=== PATIENT | male | born 1970 | race African-American/Black ===

== ENCOUNTER 2017-02-03 18:26 | Emergency (ER) | payer BC ==
[~2017-02-03] VITALS: Ht 167.6 cm; Wt 74.8 kg
[2017-02-03 19:00] VITALS: BP 167/80
[2017-02-03] MEDS ORDERED: CEFTRIAXONE IM 250 MG VIAL. IM ONE ×2 (19:11→19:30)
[2017-02-03] MEDS ORDERED: METRONIDAZOLE 500 MG TABLET. PO ONE (19:15)
[2017-02-03] MEDS ORDERED: AZITHROMYCIN 250 MG TABLET PO ONE (19:15)
[2017-02-03] MEDS ORDERED: CIPR500T94 PO (19:16)
--- NOTE | 2017-02-03 19:17 | PHYS DOC ---
Past Medical History Past Medical History: Hypertension Past Surgical History: No Surgical History Alcohol Use: Occasionally Drug Use: None Adult General Chief Complaint Chief Complaint: SEXUALLY TRANSMITTED DISEASE HPI HPI Patient is a 46 year old male presents emergency department stating that he his maid of him to let them know that she was positive for Trichomonas. Patient states that he has been having burning with urination although denies any penile drainage. Patient states that he has not had any fever, chills. He does state he has had multiple partners times 3. Review of Systems Review of Systems Constitutional: Denies fever or chills [] Eyes: Denies change in visual acuity, redness, or eye pain [] HENT: Denies nasal congestion or sore throat [] Respiratory: Denies cough or shortness of breath [] Cardiovascular: No additional information not addressed in HPI [] GI: Denies abdominal pain, nausea, vomiting, bloody stools or diarrhea [] : dysuria denies hematuria [] Musculoskeletal: Denies back pain or joint pain [] Integument: Denies rash or skin lesions [] Neurologic: Denies headache, focal weakness or sensory changes [] Current Medications Current Medications Current Medications Medications (Trade) Dose Ordered Sig/Ritu Start Time Stop Time Status Last Admin Dose Admin Azithromycin (Zithromax) 1,000 mg 1X ONCE 02/03/17 19:15 02/03/17 19:16 DC 02/03/17 19:13 1,000 MG Ceftriaxone Sodium (Rocephin Im) 250 mg 1X ONCE 02/03/17 19:30 02/03/17 19:31 DC 02/03/17 19:21 250 MG Metronidazole (Flagyl) 2,000 mg 1X ONCE 02/03/17 19:15 02/03/17 19:16 DC 02/03/17 19:13 2,000 MG Allergies Allergies Allergies Coded Allergies Type Severity Reaction Last Updated Verified No Known Drug Allergies 02/03/17 No Physical Exam Physical Exam Constitutional: Well developed, well nourished, no acute distress, non-toxic appearance. [] HENT: Normocephalic, atraumatic, bilateral external ears normal, oropharynx moist, no oral exudates, nose normal. [] Eyes: PERRLA, EOMI, conjunctiva normal, no discharge. [] Neck: Normal range of motion, no tenderness, supple, no stridor. [] Cardiovascular:Heart rate regular rhythm, no murmur [] Lungs & Thorax: Bilateral breath sounds clear to auscultation [] Abdomen: Bowel sounds hypoactive, soft, no tenderness, no masses, no pulsatile masses. [] Skin: Warm, dry, no erythema, no rash. [] Back: No tenderness Extremities: No tenderness, no cyanosis, no clubbing, ROM intact, no edema. [] Neurologic: Alert and oriented X 3, normal motor function, normal sensory function, no focal deficits noted. [] Psychologic: Affect normal, judgement normal, mood normal. [] Current Patient Data Vital Signs Vital Signs Date Time Temp Pulse Resp B/P Pulse Ox O2 Delivery O2 Flow Rate FiO2 02/03/17 19:00 97.9 89 20 96 Room Air 97.9 Lab Values Laboratory Tests Test 02/03/17 19:20 Urine Color [place] Urine Clarity Clear Urine pH 5.5 Urine Specific [place] >=1.030 Urine Protein Negativemg/dL (NEG-TRACE) Urine Glucose (UA) Negativemg/dL (NEG) Urine Ketones (Stick) Negativemg/dL (NEG) Urine Blood Negative (NEG) Urine Nitrite Negative (NEG) Urine Bilirubin Small (NEG) Urine Urobilinogen Dipstick 1.0mg/dL (0.2 mg/dL) Urine Leukocyte Esterase Small (NEG) Urine RBC Rare/HPF (0-2) Urine WBC 5-10/HPF (0-4) Urine Squamous Epithelial Cells Occ/LPF Urine Bacteria 0/HPF (0-FEW) Urine Mucus Mod/LPF EKG EKG [] Radiology/Procedures Radiology/Procedures [] Course & Med Decision Making Course & Med Decision Making Pertinent Labs and Imaging studies reviewed. (See chart for details) Patient will be provided with Rocephin injection, Zithromax and Flagyl. Patient was instructed to refrain from sexual intercourse for the next 2 weeks. He was instructed to notify his partners in regards to sexual transmitted infections. Patient was encouraged to drink plenty of fluids. Also spoke with patient in regards to using condoms. Patient will be discharged home in stable condition since symptoms to return back to emergency department as been provided. Urine was positive for urinary tract infection. Patient will be placed on Cipro. [] Dragon Disclaimer Dragon Disclaimer This electronic medical record was generated, in whole or in part, using a voice recognition dictation system. Departure Departure Impression: Primary Impression: STD (male) Additional Impression: UTI (urinary tract infection) Disposition: 01 HOME, SELF-CARE Condition: STABLE Referrals: MATY ANDREWS MD (PCP) Patient Instructions: Sexually Transmitted Disease, [id number], Urinary Tract Infection, [id number] Additional Instructions: Activity as tolerated. Medications as prescribed. Drink plenty of fluids such as water and citrus beverages. Avoid cranberry juice cocktail, carbonate beverages, citrus fruits and alcohol sees her considered irritants to the bladder. Refrain from sexual intercourse for the next 2 weeks. Notify your partners in regards to being treated for sexually transmitted infections. Primary care physician next 3-5 days. Return back to emergency prior signs symptoms of become worse. Scripts Ciprofloxacin Hcl (Cipro)500 Mg Tablet1 Tab PO BID #14 TAB Prov:JARETH HODGE NP 02/03/17 Problem Qualifiers JARETH HODGE NP Feb 03, 2017 19:17
[2017-02-03 19:28] LABS: BILIRUBIN,URINE SMALL (NEG); GLUCOSE,URINE NEGATIVE (NEG); NITRITE,URINE NEGATIVE (NEG); PH,URINE 5.5; PROTEIN,URINE NEGATIVE (NEG-TRACE)
[2017-02-03 19:35] LABS: BACTERIA,URINE 0 /HPF (0-FEW); RBC,URINE RARE /HPF (0-2); SQUAMOUS EPITHELIAL CELL,UR OCC /LPF
== END 2017-02-03 19:44 | disposition home or self-care (01) ==
LOC: ER 18:26
DX: A64 Unspecified sexually transmitted disease (principal); N39.0 Urinary tract infection, site not specified; I10 Essential (primary) hypertension
CPT/HCPCS: 81001; 87086; 87491; 87591; 96372; 99284; J0696; Q0144

== ENCOUNTER 2019-07-22 19:21 | Inpatient (IN) | payer SELFPAY ==
[~2019-07-22] VITALS: Ht 167.6 cm; Wt 68.5 kg
[~2019-07-22 19:21] MED LIST: CIPR500T94 PO
[2019-07-22] MEDS ORDERED: IPRATRPIUM/ALBUTEROL 0.5/2.5MG 3 ML NEBU. NEB ONE (19:45)
[2019-07-22 20:03] LABS: BASO # 0.1 x10^3/uL (0.0-0.2); BASO % 1 % (0-3); EOS % 1 % (0-3); HEMATOCRIT 41.7 % (39.0-53.0); HEMOGLOBIN 14.1 g/dL (13.0-17.5); LYMPH # 1.5 x10^3/uL (1.0-4.8); LYMPH % 28 % (24-48); MEAN CORPUSCULAR HEMOGLOBIN 33 pg (25-35); MEAN CORPUSCULAR HGB CONC 34 g/dL (31-37); MEAN CORPUSCULAR VOLUME 98 fL (79-100); MONO # 0.5 x10^3/uL (0.0-1.1); MONO % 9 % (0-9); NEUT # 3.2 x10^3/uL (1.8-7.7); NEUT % 61 % (31-73); PLATELET COUNT 143 x10^3/uL (140-400); RED BLOOD COUNT 4.26 x10^6/uL (4.30-5.70); RED CELL DISTRIBUTION WIDTH 15.3 % (11.5-14.5); WHITE BLOOD COUNT 5.2 x10^3/uL (4.0-11.0)
[2019-07-22 20:23] LABS: CALCIUM 8.4 mg/dL (8.5-10.1); CREATININE 1.1 mg/dL (0.7-1.3); GFR 86.4; POTASSIUM 3.5 mmol/L (3.5-5.1)
[2019-07-22 20:28] LABS: ALBUMIN 3.2 g/dL (3.4-5.0); ALBUMIN/GLOBULIN RATIO 0.8 (1.0-1.7); TOTAL BILIRUBIN 0.4 mg/dL (0.2-1.0); TOTAL PROTEIN 7.1 g/dL (6.4-8.2)
--- NOTE | 2019-07-22 21:18 | RAD ---
EXAM: CHEST 2 VIEWS. HISTORY: Shortness of breath. COMPARISON: None. FINDINGS: Frontal and lateral views of the chest is obtained. There are bilateral perihilar and basilar predominant interstitial and airspace opacities. There is no pneumothorax or pleural effusion. The heart is mildly enlarged. Hyperinflation suggests chronic obstructive pulmonary disease. IMPRESSION: 1. Mild pulmonary edema versus atypical pneumonia. 2. Correlate for chronic obstructive pulmonary disease. Electronically signed by: Yesenia Carr MD (07/22/2019 9:15 PM) [facility]
--- NOTE | 2019-07-22 22:07 | PHYS DOC ---
Past Medical History Past Medical History: Hypertension (NOEMI BOONE APRN) Past Surgical History: No Surgical History (NOEMI BOONE APRN) Alcohol Use: Occasionally Drug Use: None (NOEMI BOONE APRN) Adult General Chief Complaint Chief Complaint: SHORTNESS OF BREATH HPI HPI Patient is a 48 year old male] who presents with [SHortness of breath for the past several days. States he had just felt his breathing has gotten little bit worse over the last couple days, states he just is more lateral and, headache, worse today. Denies any coughing, denies any change in his weight. Does report he has been out of his blood pressure medicines, which include HCTZ, for the past several weeks, because he ran out of them and has not had insurance to get them refilled. States he has noticed his blood pressure has been a little higher at home recently. Denies fever, denies recent illness, denies chest pain or other discomfort. (NOEMI BOONE APRN) Review of Systems Review of Systems Constitutional: Denies fever or chills [] Eyes: Denies change in visual acuity, redness, or eye pain [] HENT: Denies nasal congestion or sore throat [] Respiratory: Denies cough reports increased shortness of breath over the past several weeks. [] Cardiovascular: No additional information not addressed in HPI [] GI: Denies abdominal pain, nausea, vomiting, bloody stools or diarrhea [] : Denies dysuria or hematuria [] Musculoskeletal: Denies back pain or joint pain [] Integument: Denies rash or skin lesions [] Neurologic: Denies headache, focal weakness or sensory changes [] Endocrine: Denies polyuria or polydipsia [] All other systems were reviewed and found to be within normal limits, except as documented in this note. (NOEMI BOONE APRN) Current Medications Current Medications Current Medications Medications (Trade) Dose Ordered Sig/Ritu Start Time Stop Time Status Last Admin Dose Admin Albuterol Sulfate (Ventolin Neb Soln) 2.5 mg PRN QID PRN 07/22/19 23:45 07/23/19 11:44 2.5 MG Albuterol/ Ipratropium (Duoneb) 3 ml 1X ONCE 07/22/19 19:45 07/22/19 19:48 DC 07/22/19 20:14 3 ML Aspirin (Children'S Aspirin) 324 mg 1X ONCE 07/22/19 23:00 07/22/19 23:02 DC 07/22/19 23:24 324 MG Furosemide (Lasix) 20 mg 1X ONCE 07/22/19 22:15 07/22/19 22:16 DC 07/22/19 22:22 20 MG Morphine Sulfate (Morphine Sulfate) 2 mg PRN Q2HR PRN 07/22/19 23:45 07/23/19 23:44 Nitroglycerin (Nitrostat) 0.4 mg PRN Q5MIN PRN 07/22/19 23:45 07/23/19 23:44 Ondansetron HCl (Zofran) 4 mg PRN Q8HRS PRN 07/22/19 23:45 07/23/19 08:14 DC Sodium Chloride 1,000 ml @ 75 mls/hr [id number] 07/22/19 23:45 07/23/19 08:15 DC (CANDELARIA CHAVEZ DO) Allergies Allergies Allergies Coded Allergies Type Severity Reaction Last Updated Verified No Known Drug Allergies 02/03/17 No (CANDELARIA CHAVEZ DO) Physical Exam Physical Exam Constitutional: Well developed, well nourished, no acute distress, non-toxic appearance. [] HENT: Normocephalic, atraumatic, bilateral external ears normal, oropharynx moist, no oral exudates, nose normal. [] Eyes: PERRLA, EOMI, conjunctiva normal, no discharge. [] Neck: Normal range of motion, no tenderness, supple, no stridor. [] Cardiovascular:Heart rate regular rhythm, no murmur [] Lungs & Thorax: Faint wheezes noted bilaterally[] Abdomen: Bowel sounds normal, soft, no tenderness, no masses, no pulsatile masses. [] Skin: Warm, dry, no erythema, no rash. [] Back: No tenderness, no CVA tenderness. [] Extremities: No tenderness, no cyanosis, no clubbing, ROM intact, 1+ edema. [] Neurologic: Alert and oriented X 3, normal motor function, normal sensory function, no focal deficits noted. [] Psychologic: Affect normal, judgement normal, mood normal. [] (NOEMI BOONE APRN) Current Patient Data Vital Signs Vital Signs Date Time Temp Pulse Resp B/P (MAP) Pulse Ox O2 Delivery O2 Flow Rate FiO2 07/22/19 23:30 84 178/90 (119) 93 Room Air 07/22/19 22:30 20 07/22/19 19:26 98.7 98.7 (CHAVEZCANDELARIA DO) Lab Values Laboratory Tests Test 07/22/19 19:50 07/22/19 22:02 07/22/19 22:25 White Blood Count 5.2 x10^3/uL (4.0-11.0) Red Blood Count 4.26 x10^6/uL (4.30-5.70) L Hemoglobin 14.1 g/dL (13.0-17.5) Hematocrit 41.7 % (39.0-53.0) Mean Corpuscular Volume 98 fL (79-100) Mean Corpuscular Hemoglobin 33 pg (25-35) Mean Corpuscular Hemoglobin Concent 34 g/dL (31-37) Red Cell Distribution Width 15.3 % (11.5-14.5) H Platelet Count 143 x10^3/uL (140-400) Neutrophils (%) (Auto) 61 % (31-73) Lymphocytes (%) (Auto) 28 % (24-48) Monocytes (%) (Auto) 9 % (0-9) Eosinophils (%) (Auto) 1 % (0-3) Basophils (%) (Auto) 1 % (0-3) Neutrophils # (Auto) 3.2 x10^3/uL (1.8-7.7) Lymphocytes # (Auto) 1.5 x10^3/uL (1.0-4.8) Monocytes # (Auto) 0.5 x10^3/uL (0.0-1.1) Eosinophils # (Auto) 0.0 x10^3/uL (0.0-0.7) Basophils # (Auto) 0.1 x10^3/uL (0.0-0.2) Sodium Level 142 mmol/L (136-145) Potassium Level 3.5 mmol/L (3.5-5.1) Chloride Level 106 mmol/L (98-107) Carbon Dioxide Level 25 mmol/L (21-32) Anion Gap 11 (6-14) Blood Urea Nitrogen 9 mg/dL (8-26) Creatinine 1.1 mg/dL (0.7-1.3) Estimated GFR (Cockcroft-Gault) 86.4 BUN/Creatinine Ratio 8 (6-20) Glucose Level 106 mg/dL (70-99) H Calcium Level 8.4 mg/dL (8.5-10.1) L Total Bilirubin 0.4 mg/dL (0.2-1.0) Aspartate Amino Transferase (AST) 19 U/L (15-37) Alanine Aminotransferase (ALT) 15 U/L (16-63) L Alkaline Phosphatase 91 U/L (46-116) Troponin I Quantitative 0.039 ng/mL (0.000-0.055) 0.061 ng/mL (0.000-0.055) WB-Nlb-Z-Type Natriuretic Peptide 4193 pg/mL (0-124) H Total Protein 7.1 g/dL (6.4-8.2) Albumin 3.2 g/dL (3.4-5.0) L Albumin/Globulin Ratio 0.8 (1.0-1.7) L Urine Collection Type Void Urine Color Yellow Urine Clarity Clear Urine pH 6.5 Urine Specific [place] 1.015 Urine Protein Negative mg/dL (NEG-TRACE) Urine Glucose (UA) Negative mg/dL (NEG) Urine Ketones (Stick) Negative mg/dL (NEG) Urine Blood Negative (NEG) Urine Nitrite Negative (NEG) Urine Bilirubin Negative (NEG) Urine Urobilinogen Dipstick 1.0 mg/dL (0.2 mg/dL) Urine Leukocyte Esterase Negative (NEG) Urine RBC Occ /HPF (0-2) Urine WBC 0 /HPF (0-4) Urine Squamous Epithelial Cells Few /LPF Urine Bacteria 0 /HPF (0-FEW) Urine Mucus Slight /LPF Laboratory Tests 07/22/19 19:50 Laboratory Tests 07/22/19 19:50 (CANDELARIA CHAVEZ DO) EKG EKG @2034No STEMI, Sinus Rhythm, Bi-Atrial enlargement. Non-specific ST Depression. [] @2321 No STEMI. Sinus Rhythm. biatrial enlargement. non specific ST depression (NOEMI BOONE APRN) Radiology/Procedures Radiology/Procedures Mild pulmonary edema vs atypical pneumonia Correlate for chronic obstructive pulmonary disease. Agustin Carr MD (NOEMI BOONE APRN) Course & Med Decision Making Course & Med Decision Making Pertinent Labs and Imaging studies reviewed. (See chart for details) [Discussed findings with patient, patient reports he feels much better following breathing treatment. Discussed administration of diuretics here, patient a greement. Discussed repeat troponin here, patient in agreement to await results. Discussed lab results with Dr Chavez, agrees patient to be admitted for elevated troponin Repeat EKG without noted changes. Patient reports he continues to feel better after having breathing treatment at the start. (NOEMI BOONE APRN) Dragon Disclaimer Dragon Disclaimer This electronic medical record was generated, in whole or in part, using a voice recognition dictation system. (NOEMI BOONE APRN) The HEART Score for CP Pts HEART Score for Chest Pain: HEART Score for Chest Pain Response (Comments) Value History Moderately Suspicious 1 ECG Nonspecific Repolarizatio 1 Age >45 - < 65 1 Risk Factors >3 Risk Factors or Hx CAD 2 Troponin >1-<3x Normal Limit 1 Total 6 Risk Factors: Risk Factors: DM, Current or recent (<one month) smoker, HTN, HLP, family histo ry of CAD, obesity. Risk Scores: Score 0 - 3: 2.5% MACE over next 6 weeks - Discharge Home Score 4 - 6: 20.3% MACE over next 6 weeks - Admit for Clinical Observation Score 7 - 10: 72.7% MACE over next 6 weeks - Early Invasive Strategies (NOEMI BOONE APRN) Departure Departure Impression: Primary Impression: Elevated troponin Additional Impressions: Shortness of breath CHF (congestive heart failure) Disposition: ADMITTED INPATIENT Admitting Physician: HIMYaron (NOEMI BOONE APRN) Condition: STABLE Referrals: NO PCP (PCP) Attending Signature Attending Signature I have reviewed the PA/LOAD TEST MECHANIC's note and plan of care. I was available for consultation as needed during the patient's visit in the emergency department. I agree with the clinical impression, plan, and disposition. (CANDELARIA CHAVEZ DO) Problem Qualifiers Additional Impressions: CHF (congestive heart failure) Heart failure type: unspecified Heart failure chronicity: acute Qualified Codes: I50.9 - Heart failure, unspecified NOEMI BOONE APRN Jul 22, 2019 22:07 CANDELARIA CHAVEZ DO Jul 23, 2019 21:39
[2019-07-22 22:10] LABS: BILIRUBIN,URINE NEGATIVE (NEG); CLARITY,URINE CLEAR; COLOR,URINE YELLOW; NITRITE,URINE NEGATIVE (NEG); PH,URINE 6.5; PROTEIN,URINE NEGATIVE (NEG-TRACE)
[2019-07-22] MEDS ORDERED: FUROSEMIDE 20 MG/2 ML VIAL. IVP ONE (22:15)
[2019-07-22 22:16] LABS: BACTERIA,URINE 0 /HPF (0-FEW); RBC,URINE OCC /HPF (0-2); SQUAMOUS EPITHELIAL CELL,UR FEW /LPF; WBC,URINE 0 /HPF (0-4)
[2019-07-22] MEDS ORDERED: ASPIRIN CHEWABLE 81 MG TABLET. PO ONE (23:00)
[2019-07-22] MEDS ORDERED: ALBUTEROL SULFATE 2.5 MG/3 ML NEBU. NEB PRN (23:45)
[2019-07-22] MEDS ORDERED: ONDANSETRON PF 4 MG/2 ML VIAL. IV PRN (23:45)
[2019-07-22] MEDS ORDERED: IV NORMAL SALINE 1000ML BAG 1,000 ML IV SCH (23:45)
[2019-07-22] MEDS ORDERED: NITROGLYCERIN SUBLINGUAL 0.4 MG BOTTLE OF 25. SL PRN (23:45)
[2019-07-22] MEDS ORDERED: MORPHINE SULFATE 2 MG/ML VIAL. IV PRN (23:45)
[2019-07-23] VITALS (7 sets, daily range): BP systolic 136–190; BP diastolic 72–112
[2019-07-23] MEDS ORDERED: IPRATRPIUM/ALBUTEROL 0.5/2.5MG 3 ML NEBU. NEB ONE (04:30)
--- NOTE | 2019-07-23 07:00 | NUR ---
Pt states he was prescribed norvasc and HCTZ previously, dose not know dose or frequency, has not been able to continue the medications due ot loss of insurance and not being able to afford them.
--- NOTE | 2019-07-23 07:02 | EKG ---
[facility] [address] [place] [address] Test Date: 2019-07-22 Test Time: 23:21:00 Pat Name: DUSTY CONTEH Department: Room: 209 1 Gender: M [employer] Checker: : 1970 Requested By: NOEMI BOONE Order Number: [id number] Reading MD: Percy Carter MD Measurements Intervals [place] Rate: 83 P: 57 IA: 114 QRS: 37 QRSD: 82 T: 34 QT: 372 QTc: 438 Interpretive Statements SINUS RHYTHM LVH Electronically Signed On 07-23-2019 18:15:36 CDT by Percy Carter MD
[2019-07-23] MEDS ORDERED: hydrALAZINE 20 MG/ML VIAL. IVP PRN (07:45)
[2019-07-23] MEDS ORDERED: ONDANSETRON PF 4 MG/2 ML VIAL. IV PRN ×2 (08:15)
[2019-07-23] MEDS ORDERED: ACETAMINOPHEN 500 MG TABLET PO PRN (08:15)
[2019-07-23] MEDS ORDERED: ACETAMINOPHEN/CODEINE 300/30MG TABLET. PO PRN (08:15)
[2019-07-23] MEDS: hydroCHLOROthiazide 25 MG TABLET PO SCH (08:26)
--- NOTE | 2019-07-23 09:19 | PDOC2 ---
JIL MENCHACA BUSINESS SERVICES ANALYST 07/23/19 0919: CARDIAC CONSULT DATE OF CONSULT Date of Consult DATE: 07/23/19 TIME: 09:15 REASON FOR CONSULT Reason for Consult: Elevated troponin Hypertension ? CHF REFERRING PHYSICIAN Referring Physician: Dr. Scott SOURCE Source: Chart review, Patient HISTORY OF PRESENT ILLNESS HISTORY OF PRESENT ILLNESS This is a 48 yo male who presented secondary to shortness of breath. Patient re ports shortness of breath has been present for the last couple of weeks. Has been progressively worsening. Came home from [place] yesterday and had difficulty catching his breath. Was very diaphoretic. Called EMS. No associated chest pain, palpitations, dizziness, diaphoresis, or nausea/vomiting. Does have a history of hypertension. Ran out of blood pressure medications about 7 months ago and never had refilled. PAST MEDICAL HISTORY Cardiovascular: HTN PAST SURGICAL HISTORY Past Surgical History: No pertinent history FAMILY HISTORY Family History: Hypertension SOCIAL HISTORY Smoke: No ALCOHOL: none Drugs: None Lives: with Family CURRENT MEDICATIONS CURRENT MEDICATIONS Current Medications Medications (Trade) Dose Ordered Sig/Ritu Route PRN Reason Start Time Stop Time Status Last Admin Dose Admin Albuterol/ Ipratropium (Duoneb) 3 ml 1X ONCE NEB 07/22/19 19:45 07/22/19 19:48 DC 07/22/19 20:14 Furosemide (Lasix) 20 mg 1X ONCE IVP 07/22/19 22:15 07/22/19 22:16 DC 07/22/19 22:22 Aspirin (Children'S Aspirin) 324 mg 1X ONCE PO 07/22/19 23:00 07/22/19 23:02 DC 07/22/19 23:24 Albuterol/ Ipratropium (Duoneb) 3 ml 1X ONCE NEB 07/23/19 04:30 07/23/19 05:04 DC 07/23/19 04:40 Hydralazine HCl (Apresoline Inj) 10 mg PRN Q4HRS PRN IVP ELEVATED BP, SEE COMMENTS 07/23/19 07:45 07/23/19 07:52 Hydrochlorothiazide (Hydrodiuril) 25 mg DAILY PO 07/23/19 09:00 07/23/19 08:27 ALLERGIES ALLERGIES: Coded Allergies: No Known Drug Allergies (Unverified , 02/03/17) ROS Review of System 14 point ROS conducted with pertinent positives noted above in HPI. PHYSICAL EXAM General: Alert, Oriented X3, Cooperative, No acute distress HEENT: Atraumatic, Mucous membr. moist/pink Lungs: Other (fine bibasilar crackles ) Heart: Regular rate, Normal S1, Normal S2 Abdomen: Soft, No tenderness Extremities: Normal pulses, Other (trace bilateral LE edema ) Skin: No significant lesion Neuro: Normal speech, Sensation intact Psych/Mental Status: Mental status NL, Mood NL MUSCULOSKELETAL: No deformity VITALS/I&O VITALS/I&O: Vital Signs Date Time Temp Pulse Resp B/P (MAP) Pulse Ox O2 Delivery O2 Flow Rate FiO2 07/23/19 07:52 74 190/112 07/23/19 07:35 98.6 20 92 Room Air 98.6 I & O 07/22/19 07/22/19 07/23/19 14:59 22:59 06:59 Intake Total 200 ml Output Total 300 ml Balance -100 ml LABS Lab: Laboratory Tests Test 07/22/19 19:50 07/22/19 22:02 07/22/19 22:25 07/23/19 02:40 White Blood Count 5.2 x10^3/uL (4.0-11.0) Red Blood Count 4.26 x10^6/uL (4.30-5.70) L Hemoglobin 14.1 g/dL (13.0-17.5) Hematocrit 41.7 % (39.0-53.0) Mean Corpuscular Volume 98 fL (79-100) Mean Corpuscular Hemoglobin 33 pg (25-35) Mean Corpuscular Hemoglobin Concent 34 g/dL (31-37) Red Cell Distribution Width 15.3 % (11.5-14.5) H Platelet Count 143 x10^3/uL (140-400) Neutrophils (%) (Auto) 61 % (31-73) Lymphocytes (%) (Auto) 28 % (24-48) Monocytes (%) (Auto) 9 % (0-9) Eosinophils (%) (Auto) 1 % (0-3) Basophils (%) (Auto) 1 % (0-3) Neutrophils # (Auto) 3.2 x10^3/uL (1.8-7.7) Lymphocytes # (Auto) 1.5 x10^3/uL (1.0-4.8) Monocytes # (Auto) 0.5 x10^3/uL (0.0-1.1) Eosinophils # (Auto) 0.0 x10^3/uL (0.0-0.7) Basophils # (Auto) 0.1 x10^3/uL (0.0-0.2) Sodium Level 142 mmol/L (136-145) Potassium Level 3.5 mmol/L (3.5-5.1) Chloride Level 106 mmol/L (98-107) Carbon Dioxide Level 25 mmol/L (21-32) Anion Gap 11 (6-14) Blood Urea Nitrogen 9 mg/dL (8-26) Creatinine 1.1 mg/dL (0.7-1.3) Estimated GFR (Cockcroft-Gault) 86.4 BUN/Creatinine Ratio 8 (6-20) Glucose Level 106 mg/dL (70-99) H Calcium Level 8.4 mg/dL (8.5-10.1) L Total Bilirubin 0.4 mg/dL (0.2-1.0) Aspartate Amino Transferase (AST) 19 U/L (15-37) Alanine Aminotransferase (ALT) 15 U/L (16-63) L Alkaline Phosphatase 91 U/L (46-116) Troponin I Quantitative 0.039 ng/mL (0.000-0.055) 0.061 ng/mL (0.000-0.055) 0.034 ng/mL (0.000-0.055) NU-[id number]-I-Type Natriuretic Peptide 4193 pg/mL (0-124) H Total Protein 7.1 g/dL (6.4-8.2) Albumin 3.2 g/dL (3.4-5.0) L Albumin/Globulin Ratio 0.8 (1.0-1.7) L Urine Collection Type Void Urine Color Yellow Urine Clarity Clear Urine pH 6.5 Urine Specific [place] 1.015 Urine Protein Negative mg/dL (NEG-TRACE) Urine Glucose (UA) Negative mg/dL (NEG) Urine Ketones (Stick) Negative mg/dL (NEG) Urine Blood Negative (NEG) Urine Nitrite Negative (NEG) Urine Bilirubin Negative (NEG) Urine Urobilinogen Dipstick 1.0 mg/dL (0.2 mg/dL) Urine Leukocyte Esterase Negative (NEG) Urine RBC Occ /HPF (0-2) Urine WBC 0 /HPF (0-4) Urine Squamous Epithelial Cells Few /LPF Urine Bacteria 0 /HPF (0-FEW) Urine Mucus Slight /LPF Laboratory Tests 07/22/19 19:50 Laboratory Tests 07/22/19 19:50 ASSESSMENT/PLAN ASSESSMENT/PLAN 1. Acute respiratory failure secondary to acute CHF 2. Hypertensive urgency; secondary to med noncompliance 3. Mild troponin elevation; peak 0.061. Most probably type II, demand ischemia secondary to #2. 4. Acute on chronic probable diastolic CHF; likely secondary to uncontrolled HTN. Received IV Lasix in ED Recommendations Diuresis Echo to assess LV systolic function Lipid panel Blood pressure control. Hydralazine IV PRN Reinforced medical compliance Consider outpatient ischemic evaluation QING MORIN MD 07/23/19 2306: CARDIAC CONSULT ASSESSMENT/PLAN ASSESSMENT/PLAN Pt. seen and examined. Agree with above BUILDING REPAIR MAINTENANCE SUPERVISOR note. 48 y.o with uncontrolled BP. Discussed smoking cessation. Continue BP mgmt. EF wnl on echo. JIL MENCHACA APRN Jul 23, 2019 09:19 QING MORIN MD Jul 23, 2019 23:06
--- NOTE | 2019-07-23 09:34 | PDOC1 ---
History and Physical Date of Admission Date of Admission DATE: 07/23/19 TIME: 09:29 Identification/Chief Complaint Chief Complaint soa Source Source: Caregiver, Chart review, Patient History of Present Illness History of Present Illness 48 AA male, takes 3 meds at home but cant recall their names, (including a water pill), SOA few days, some leg swelling, MIld congestion on CXR got 20 IVP lasix from er with good UO< no CP,. BP high side, got a call this AM from RN. Still soa, legs better HE mentions a water pill, maybe clonidine and another unrecalled med Trop second set mildly elevated 0./09 Past Medical History Cardiovascular: CHF, HTN Past Surgical History Past Surgical History: No pertinent history Family History Family History: Hypertension Social History Smoke: No ALCOHOL: none Drugs: None Current Medications Current Medications Current Medications Albuterol/ Ipratropium (Duoneb) 3 ml 1X ONCE NEB Last administered on 07/22/19at 20:14; Start 07/22/19 at 19:45; Stop 07/22/19 at 19:48; Status DC Furosemide (Lasix) 20 mg 1X ONCE IVP Last administered on 07/22/19at 22:22; Start 07/22/19 at 22:15; Stop 07/22/19 at 22:16; Status DC Aspirin (Children'S Aspirin) 324 mg 1X ONCE PO Last administered on 07/22/19at 23:24; Start 07/22/19 at 23:00; Stop 07/22/19 at 23:02; Status DC Ondansetron HCl (Zofran) 4 mg PRN Q8HRS PRN IV NAUSEA/VOMITING; Start 07/22/19 at 23:45; Stop 07/23/19 at 08:14; Status DC Morphine Sulfate (Morphine Sulfate) 2 mg PRN Q2HR PRN IV PAIN; Start 07/22/19 at 23:45; Stop 07/23/19 at 23:44 Sodium Chloride 1,000 ml @ 75 mls/hr [id number] IV ; Start 07/22/19 at 23:45; Stop 07/23/19 at 08:15; Status DC Nitroglycerin (Nitrostat) 0.4 mg PRN Q5MIN PRN SL CHEST PAIN; Start 07/22/19 at 23:45; Stop 07/23/19 at 23:44 Albuterol Sulfate (Ventolin Neb Soln) 2.5 mg PRN QID PRN NEB SOA; Start 07/22/19 at 23:45 Albuterol/ Ipratropium (Duoneb) 3 ml 1X ONCE NEB Last administered on 07/23/19at 04:40; Start 07/23/19 at 04:30; Stop 07/23/19 at 05:04; Status DC Hydralazine HCl (Apresoline Inj) 10 mg PRN Q4HRS PRN IVP ELEVATED BP, SEE COMMENTS Last administered on 07/23/19at 07:52; Start 07/23/19 at 07:45 Ondansetron HCl (Zofran) 4 mg PRN Q6HRS PRN IV NAUSEA/VOMITING; Start 07/23/19 at 08:15 Hydrochlorothiazide (Hydrodiuril) 25 mg DAILY PO Last administered on 07/23/19at 08:27; Start 07/23/19 at 09:00 Acetaminophen (Tylenol) 500 mg PRN Q6HRS PRN PO MILD PAIN / TEMP; Start 07/23/19 at 08:15 Acetaminophen/ Codeine Phosphate (Tylenol #3) 1 tab PRN Q6HRS PRN PO MODERATE PAIN; Start 07/23/19 at 08:15 Ondansetron HCl (Zofran) 4 mg PRN Q6HRS PRN IV NAUSEA/VOMITING; Start 07/23/19 at 08:15 Active Scripts Active Allergies Allergies: Coded Allergies: No Known Drug Allergies (Unverified , 02/03/17) ROS Review of System as per HPI, the rest 14 pt ROS neg, has leg edema, SOA on exertion, no abd pain,nv.d/ no cp Physical Exam General: Alert, Oriented X3, Cooperative, No acute distress HEENT: PERRLA Lungs: Normal air movement, Other (crackles, no wheezing) Cardiovascular: S1, S2 Breasts: Normal, Rt breast nml w/o mass, Lt breast nml w/o mass, Nipples normal Abdomen: Normal bowel sounds, Soft, No tenderness, No hepatosplenomegaly, No masses Rectal Exam: not examined PELVIC: Nml ext genitalia Extremities: No clubbing, No cyanosis, No edema, Normal pulses, No tenderness/swelling Skin: No rashes, No breakdown, No significant lesion Neuro: Normal gait, Normal speech, Strength at 5/5 X4 ext, Normal tone, Sensation intact, Cranial nerves 3-12 NL, Reflexes 2+ Psych/Mental Status: Mental status NL Vitals Vitals Vital Signs Date Time Temp Pulse Resp B/P (MAP) Pulse Ox O2 Delivery O2 Flow Rate FiO2 07/23/19 08:00 Room Air 07/23/19 07:52 74 190/112 07/23/19 07:35 98.6 20 92 98.6 Labs Labs Laboratory Tests Test 07/22/19 19:50 07/22/19 22:02 07/22/19 22:25 07/23/19 02:40 White Blood Count 5.2 x10^3/uL (4.0-11.0) Red Blood Count 4.26 x10^6/uL (4.30-5.70) Hemoglobin 14.1 g/dL (13.0-17.5) Hematocrit 41.7 % (39.0-53.0) Mean Corpuscular Volume 98 fL (79-100) Mean Corpuscular Hemoglobin 33 pg (25-35) Mean Corpuscular Hemoglobin Concent 34 g/dL (31-37) Red Cell Distribution Width 15.3 % (11.5-14.5) Platelet Count 143 x10^3/uL (140-400) Neutrophils (%) (Auto) 61 % (31-73) Lymphocytes (%) (Auto) 28 % (24-48) Monocytes (%) (Auto) 9 % (0-9) Eosinophils (%) (Auto) 1 % (0-3) Basophils (%) (Auto) 1 % (0-3) Neutrophils # (Auto) 3.2 x10^3/uL (1.8-7.7) Lymphocytes # (Auto) 1.5 x10^3/uL (1.0-4.8) Monocytes # (Auto) 0.5 x10^3/uL (0.0-1.1) Eosinophils # (Auto) 0.0 x10^3/uL (0.0-0.7) Basophils # (Auto) 0.1 x10^3/uL (0.0-0.2) Sodium Level 142 mmol/L (136-145) Potassium Level 3.5 mmol/L (3.5-5.1) Chloride Level 106 mmol/L (98-107) Carbon Dioxide Level 25 mmol/L (21-32) Anion Gap 11 (6-14) Blood Urea Nitrogen 9 mg/dL (8-26) Creatinine 1.1 mg/dL (0.7-1.3) Estimated GFR (Cockcroft-Gault) 86.4 BUN/Creatinine Ratio 8 (6-20) Glucose Level 106 mg/dL (70-99) Calcium Level 8.4 mg/dL (8.5-10.1) Total Bilirubin 0.4 mg/dL (0.2-1.0) Aspartate Amino Transf (AST/SGOT) 19 U/L (15-37) Alanine Aminotransferase (ALT/SGPT) 15 U/L (16-63) Alkaline Phosphatase 91 U/L (46-116) Troponin I Quantitative 0.039 ng/mL (0.000-0.055) 0.061 ng/mL (0.000-0.055) 0.034 ng/mL (0.000-0.055) JI-Tle-U-Type Natriuretic Peptide 4193 pg/mL (0-124) Total Protein 7.1 g/dL (6.4-8.2) Albumin 3.2 g/dL (3.4-5.0) Albumin/Globulin Ratio 0.8 (1.0-1.7) Urine Collection Type Void Urine Color Yellow Urine Clarity Clear Urine pH 6.5 Urine Specific [place] 1.015 Urine Protein Negative mg/dL (NEG-TRACE) Urine Glucose (UA) Negative mg/dL (NEG) Urine Ketones (Stick) Negative mg/dL (NEG) Urine Blood Negative (NEG) Urine Nitrite Negative (NEG) Urine Bilirubin Negative (NEG) Urine Urobilinogen Dipstick 1.0 mg/dL (0.2 mg/dL) Urine Leukocyte Esterase Negative (NEG) Urine RBC Occ /HPF (0-2) Urine WBC 0 /HPF (0-4) Urine Squamous Epithelial Cells Few /LPF Urine Bacteria 0 /HPF (0-FEW) Urine Mucus Slight /LPF Laboratory Tests Test 07/22/19 19:50 07/22/19 22:02 07/22/19 22:25 07/23/19 02:40 White Blood Count 5.2 x10^3/uL (4.0-11.0) Red Blood Count 4.26 x10^6/uL (4.30-5.70) Hemoglobin 14.1 g/dL (13.0-17.5) Hematocrit 41.7 % (39.0-53.0) Mean Corpuscular Volume 98 fL (79-100) Mean Corpuscular Hemoglobin 33 pg (25-35) Mean Corpuscular Hemoglobin Concent 34 g/dL (31-37) Red Cell Distribution Width 15.3 % (11.5-14.5) Platelet Count 143 x10^3/uL (140-400) Neutrophils (%) (Auto) 61 % (31-73) Lymphocytes (%) (Auto) 28 % (24-48) Monocytes (%) (Auto) 9 % (0-9) Eosinophils (%) (Auto) 1 % (0-3) Basophils (%) (Auto) 1 % (0-3) Neutrophils # (Auto) 3.2 x10^3/uL (1.8-7.7) Lymphocytes # (Auto) 1.5 x10^3/uL (1.0-4.8) Monocytes # (Auto) 0.5 x10^3/uL (0.0-1.1) Eosinophils # (Auto) 0.0 x10^3/uL (0.0-0.7) Basophils # (Auto) 0.1 x10^3/uL (0.0-0.2) Sodium Level 142 mmol/L (136-145) Potassium Level 3.5 mmol/L (3.5-5.1) Chloride Level 106 mmol/L (98-107) Carbon Dioxide Level 25 mmol/L (21-32) Anion Gap 11 (6-14) Blood Urea Nitrogen 9 mg/dL (8-26) Creatinine 1.1 mg/dL (0.7-1.3) Estimated GFR (Cockcroft-Gault) 86.4 BUN/Creatinine Ratio 8 (6-20) Glucose Level 106 mg/dL (70-99) Calcium Level 8.4 mg/dL (8.5-10.1) Total Bilirubin 0.4 mg/dL (0.2-1.0) Aspartate Amino Transf (AST/SGOT) 19 U/L (15-37) Alanine Aminotransferase (ALT/SGPT) 15 U/L (16-63) Alkaline Phosphatase 91 U/L (46-116) Troponin I Quantitative 0.039 ng/mL (0.000-0.055) 0.061 ng/mL (0.000-0.055) 0.034 ng/mL (0.000-0.055) PG-Luq-W-Type Natriuretic Peptide 4193 pg/mL (0-124) Total Protein 7.1 g/dL (6.4-8.2) Albumin 3.2 g/dL (3.4-5.0) Albumin/Globulin Ratio 0.8 (1.0-1.7) Urine Collection Type Void Urine Color Yellow Urine Clarity Clear Urine pH 6.5 Urine Specific [place] 1.015 Urine Protein Negative mg/dL (NEG-TRACE) Urine Glucose (UA) Negative mg/dL (NEG) Urine Ketones (Stick) Negative mg/dL (NEG) Urine Blood Negative (NEG) Urine Nitrite Negative (NEG) Urine Bilirubin Negative (NEG) Urine Urobilinogen Dipstick 1.0 mg/dL (0.2 mg/dL) Urine Leukocyte Esterase Negative (NEG) Urine RBC Occ /HPF (0-2) Urine WBC 0 /HPF (0-4) Urine Squamous Epithelial Cells Few /LPF Urine Bacteria 0 /HPF (0-FEW) Urine Mucus Slight /LPF VTE Prophylaxis Ordered VTE Prophylaxis Devices: Yes VTE Pharmacological Prophylaxi: Yes Assessment/Plan Assessment/Plan CHF, pulm edema on cxr and clincially - check echo, ordered already, cards consulted LASIX 20 IVP now then daily We got home meds form his pharmacy already - ok to cont Accelerated HTN - as above Eleavted trop - trend it Borderline K - already 3,5 - stat KCl daily PO since i am diuresing PLAN: CVC, 2 MN Dw RN As above RENETTA REDDING MD Jul 23, 2019 09:34
[2019-07-23 09:44] LABS: BASO % 1 % (0-3); EOS % 0 % (0-3); HEMATOCRIT 43.8 % (39.0-53.0); HEMOGLOBIN 14.9 g/dL (13.0-17.5); LYMPH # 1.1 x10^3/uL (1.0-4.8); LYMPH % 15 % (24-48); MEAN CORPUSCULAR HEMOGLOBIN 33 pg (25-35); MEAN CORPUSCULAR HGB CONC 34 g/dL (31-37); MEAN CORPUSCULAR VOLUME 98 fL (79-100); MONO # 0.7 x10^3/uL (0.0-1.1); MONO % 9 % (0-9); NEUT # 5.5 x10^3/uL (1.8-7.7); NEUT % 75 % (31-73); PLATELET COUNT 146 x10^3/uL (140-400); RED BLOOD COUNT 4.48 x10^6/uL (4.30-5.70); RED CELL DISTRIBUTION WIDTH 15.5 % (11.5-14.5); WHITE BLOOD COUNT 7.2 x10^3/uL (4.0-11.0)
[2019-07-23 09:52] LABS: CHOLESTEROL/HDL RATIO 2.7
[2019-07-23] MEDS ORDERED: POTASSIUM CHLORIDE 20 MEQ TABLET.ER. PO ONE (10:00)
[2019-07-23] MEDS ORDERED: FUROSEMIDE 20 MG/2 ML VIAL. IVP ONE (10:00)
[2019-07-23 10:13] LABS: ALBUMIN 3.2 g/dL (3.4-5.0); ALBUMIN/GLOBULIN RATIO 0.9 (1.0-1.7); CALCIUM 8.6 mg/dL (8.5-10.1); GFR 96.5; POTASSIUM 3.4 mmol/L (3.5-5.1); TOTAL BILIRUBIN 1.2 mg/dL (0.2-1.0); TOTAL PROTEIN 6.9 g/dL (6.4-8.2)
[2019-07-23] MEDS ORDERED: amLODIPine BESYLATE 5 MG TABLET PO SCH (10:30)
[2019-07-23] MEDS: cloNIDine HCL 0.2 MG TABLET PO SCH ×2 (12:58→20:34)
[2019-07-23] MEDS: amLODIPine BESYLATE 10 MG TABLET PO SCH (12:58)
[2019-07-23] MEDS ORDERED: LISINOPRIL 10 MG TABLET PO ONE (13:00)
--- NOTE | 2019-07-23 14:13 | NUR ---
SS following for discharge planning. SS reviewed pt chart. Pt is self pay pt. HCFS following for self pay status. Pt is from home and is currently on room air. No discharge needs noted at this time. SS will continue to follow for discharge planning.
--- NOTE | 2019-07-23 14:58 | CARD ---
MR#: [id number] Date of Study: 07/23/2019 Ordering Physician: JIL MENCHAAC, Referring Physician: JIL MENCHACA, Tech: Angelika Kwan RDCS APPROVED REPORT EXAM: Two-dimensional and M-mode echocardiogram with Doppler and color Doppler. Other Information Quality : Good INDICATION Elevated Troponin RISK FACTORS Smoking 2D DIMENSIONS RVDd2.5 (2.9-3.5cm)Left Atrium(2D)4.3 (1.6-4.0cm) IVSd1.5 (0.7-1.1cm)Aortic Root(2D)2.6 (2.0-3.7cm) LVDd5.0 (3.9-5.9cm)LVOT Diameter2.1 (1.8-2.4cm) PWd1.7 (0.7-1.1cm)LVDs3.4 (2.5-4.0cm) FS (%) 32.6 %SV71.3 ml LVEF(%)60.8 (>50%) M-Mode DIMENSIONS Aortic Cusp Exc1.80 (1.5-2.0cm) Aortic Valve AoV Peak Dariel.245.7cm/sAoV VTI42.8cm AO Peak GR.24.1mmHgLVOT Peak Dariel.151.3cm/s LVOT VTI 28.49cmAO Mean GR.15mmHg MILLER (VMAX)2.13sv6RDD (VTI)2.24cm2 AI P 1/2 [id number] Mitral Valve MV E Nmumeblm99.1cm/sMV DECEL SHFJ132la MV A Ujhpeuau655.6cm/sMV LKP911zr E/A Ratio0.8MVA (PHT)1.95cm2 TDI E/Lateral E'16.8E/Medial E'14.6 Tricuspid Valve TR P. Mfssxrsj966ca/sRAP [id number] TR Peak Gr.57hfWoCRVQ53rtJp Pulmonary Vein S1 Ypsgovrw13.3cm/sD2 Tnvhrhfl89.2cm/s LEFT VENTRICLE The left ventricle is normal size. There is moderate concentric left ventricular hypertrophy. The lef t ventricular systolic function is normal and the ejection fraction is within normal range. The Eject ion Fraction is 55-60%. There is normal LV segmental wall motion. Transmitral Doppler flow pattern is Grade I-abnormal relaxation pattern. RIGHT VENTRICLE The right ventricle is normal size. The right ventricular systolic function is normal. ATRIA The left atrium is mildly dilated. The right atrium size is normal. The interatrial septum is intact with no evidence for an atrial septal defect or patent foramen ovale as noted on 2-D or Doppler imagi ng. AORTIC VALVE The aortic valve is trileaflet. Doppler and Color Flow revealed mild to moderate aortic regurgitation . There is no significant aortic valvular stenosis. MITRAL VALVE The mitral valve is calcified but opens well. There is no evidence of mitral valve prolapse. There is no mitral valve stenosis. Doppler and Color-flow revealed moderate mitral regurgitation. TRICUSPID VALVE The tricuspid valve is normal in structure and function. Doppler and Color Flow revealed mild tricusp id regurgitation. The PA pressure was estimated at 25 mmHg. There is no tricuspid valve stenosis. PULMONIC VALVE The pulmonary valve is normal in structure and function. Doppler and Color Flow revealed trace pulmon ic valvular regurgitation. There is no pulmonic valvular stenosis. GREAT VESSELS The aortic root is normal in size. The ascending aorta is normal in size. The IVC is normal in size a nd collapses >50% with inspiration. PERICARDIAL EFFUSION There is no evidence of significant pericardial effusion. Critical Notification Critical Value: No <Conclusion> The left ventricle is normal size. The left ventricular systolic function is normal and the ejection fraction is within normal range. The Ejection Fraction is 55-60%. There is moderate concentric left ventricular hypertrophy. There is no significant aortic valvular stenosis. Doppler and Color Flow revealed mild to moderate aortic regurgitation. Doppler and Color-flow revealed moderate mitral regurgitation. Doppler and Color Flow revealed mild tricuspid regurgitation. The PA pressure was estimated at 25 mmHg. Signed by : Glynn Aldnaa MD Electronically Approved : 07/23/2019 14:58:14
[2019-07-24 02:17] VITALS: BP 134/72
--- NOTE | 2019-07-24 02:44 | NUR ---
Patient SB 49-51. Patient laying in bed watching TV. Denies CP, SOA or palpations. Patient quickly noticed nurse was entering room. Did not delay in response to nurse. Stated he didn't take his Clonidine last night. Yesterday was first day that he took all of his BP medications. Didn't take the night before because he was in ED the transferred to floor. RN will continue to monitor.
[2019-07-24] MEDS: cloNIDine HCL 0.2 MG TABLET PO SCH (06:04)
[2019-07-24 07:00] VITALS: BP 135/67
[2019-07-24] MEDS: hydroCHLOROthiazide 25 MG TABLET PO SCH (07:55)
[2019-07-24] MEDS: amLODIPine BESYLATE 10 MG TABLET PO SCH (07:56)
[2019-07-24] MEDS ORDERED: POTASSIUM CHLORIDE 20 MEQ TABLET.ER. PO SCH (08:00)
[2019-07-24] MEDS ORDERED: FUROSEMIDE 20 MG/2 ML VIAL. IVP SCH (09:00)
[2019-07-24] MEDS ORDERED: LISINOPRIL 20 MG TABLET PO SCH (09:00)
[2019-07-24 11:00] VITALS: BP 129/74
[2019-07-24] MEDS ORDERED: FLUTICASONE 50MCG/NASAL SPRAY 16GM BOTTLE. NS SCH (11:00)
[2019-07-24] MEDS ORDERED: LISI-130 PO (12:56)
[2019-07-24] MEDS ORDERED: AMLO10TA8 PO (12:56)
[2019-07-24] MEDS ORDERED: FLUT9.9S NS (12:56)
[2019-07-24] MEDS ORDERED: FURO-69 PO (12:56)
[2019-07-24] MEDS ORDERED: POTA10TA6 PO (12:56)
--- NOTE | 2019-07-24 12:59 | PDOC3 ---
Discharge Summary Visit Information Date of Admission: Jul 23, 2019 Date of Discharge: Jul 24, 2019 Brief Hospital Course Allergies Allergies Coded Allergies Type Severity Reaction Last Updated Verified No Known Drug Allergies 02/03/17 No Vital Signs Vital Signs Date Time Temp Pulse Resp B/P (MAP) Pulse Ox O2 Delivery O2 Flow Rate FiO2 07/24/19 11:00 97.5 92 16 129/74 (92) 99 Room Air 97.5 Lab Results Laboratory Tests Test 07/22/19 19:50 07/22/19 22:02 07/22/19 22:25 07/23/19 02:40 White Blood Count 5.2 x10^3/uL (4.0-11.0) Red Blood Count 4.26 x10^6/uL (4.30-5.70) Hemoglobin 14.1 g/dL (13.0-17.5) Hematocrit 41.7 % (39.0-53.0) Mean Corpuscular Volume 98 fL (79-100) Mean Corpuscular Hemoglobin 33 pg (25-35) Mean Corpuscular Hemoglobin Concent 34 g/dL (31-37) Red Cell Distribution Width 15.3 % (11.5-14.5) Platelet Count 143 x10^3/uL (140-400) Neutrophils (%) (Auto) 61 % (31-73) Lymphocytes (%) (Auto) 28 % (24-48) Monocytes (%) (Auto) 9 % (0-9) Eosinophils (%) (Auto) 1 % (0-3) Basophils (%) (Auto) 1 % (0-3) Neutrophils # (Auto) 3.2 x10^3/uL (1.8-7.7) Lymphocytes # (Auto) 1.5 x10^3/uL (1.0-4.8) Monocytes # (Auto) 0.5 x10^3/uL (0.0-1.1) Eosinophils # (Auto) 0.0 x10^3/uL (0.0-0.7) Basophils # (Auto) 0.1 x10^3/uL (0.0-0.2) Sodium Level 142 mmol/L (136-145) Potassium Level 3.5 mmol/L (3.5-5.1) Chloride Level 106 mmol/L (98-107) Carbon Dioxide Level 25 mmol/L (21-32) Anion Gap 11 (6-14) Blood Urea Nitrogen 9 mg/dL (8-26) Creatinine 1.1 mg/dL (0.7-1.3) Estimated GFR (Cockcroft-Gault) 86.4 BUN/Creatinine Ratio 8 (6-20) Glucose Level 106 mg/dL (70-99) Calcium Level 8.4 mg/dL (8.5-10.1) Total Bilirubin 0.4 mg/dL (0.2-1.0) Aspartate Amino Transf (AST/SGOT) 19 U/L (15-37) Alanine Aminotransferase (ALT/SGPT) 15 U/L (16-63) Alkaline Phosphatase 91 U/L (46-116) Troponin I Quantitative 0.039 ng/mL (0.000-0.055) 0.061 ng/mL (0.000-0.055) 0.034 ng/mL (0.000-0.055) GU-Dve-R-Type Natriuretic Peptide 4193 pg/mL (0-124) Total Protein 7.1 g/dL (6.4-8.2) Albumin 3.2 g/dL (3.4-5.0) Albumin/Globulin Ratio 0.8 (1.0-1.7) Urine Collection Type Void Urine Color Yellow Urine Clarity Clear Urine pH 6.5 Urine Specific [place] 1.015 Urine Protein Negative mg/dL (NEG-TRACE) Urine Glucose (UA) Negative mg/dL (NEG) Urine Ketones (Stick) Negative mg/dL (NEG) Urine Blood Negative (NEG) Urine Nitrite Negative (NEG) Urine Bilirubin Negative (NEG) Urine Urobilinogen Dipstick 1.0 mg/dL (0.2 mg/dL) Urine Leukocyte Esterase Negative (NEG) Urine RBC Occ /HPF (0-2) Urine WBC 0 /HPF (0-4) Urine Squamous Epithelial Cells Few /LPF Urine Bacteria 0 /HPF (0-FEW) Urine Mucus Slight /LPF Triglycerides Level 68 mg/dL (0-150) Cholesterol Level 154 mg/dL (0-200) LDL Cholesterol, Calculated 83 mg/dL (0-100) VLDL Cholesterol, Calculated 14 mg/dL (0-40) Non-HDL Cholesterol Calculated 97 mg/dL (0-129) HDL Cholesterol 57 mg/dL (40-60) Cholesterol/HDL Ratio 2.7 Test 07/23/19 08:43 White Blood Count 7.2 x10^3/uL (4.0-11.0) Red Blood Count 4.48 x10^6/uL (4.30-5.70) Hemoglobin 14.9 g/dL (13.0-17.5) Hematocrit 43.8 % (39.0-53.0) Mean Corpuscular Volume 98 fL (79-100) Mean Corpuscular Hemoglobin 33 pg (25-35) Mean Corpuscular Hemoglobin Concent 34 g/dL (31-37) Red Cell Distribution Width 15.5 % (11.5-14.5) Platelet Count 146 x10^3/uL (140-400) Neutrophils (%) (Auto) 75 % (31-73) Lymphocytes (%) (Auto) 15 % (24-48) Monocytes (%) (Auto) 9 % (0-9) Eosinophils (%) (Auto) 0 % (0-3) Basophils (%) (Auto) 1 % (0-3) Neutrophils # (Auto) 5.5 x10^3/uL (1.8-7.7) Lymphocytes # (Auto) 1.1 x10^3/uL (1.0-4.8) Monocytes # (Auto) 0.7 x10^3/uL (0.0-1.1) Eosinophils # (Auto) 0.0 x10^3/uL (0.0-0.7) Basophils # (Auto) 0.0 x10^3/uL (0.0-0.2) Sodium Level 142 mmol/L (136-145) Potassium Level 3.4 mmol/L (3.5-5.1) Chloride Level 105 mmol/L (98-107) Carbon Dioxide Level 25 mmol/L (21-32) Anion Gap 12 (6-14) Blood Urea Nitrogen 7 mg/dL (8-26) Creatinine 1.0 mg/dL (0.7-1.3) Estimated GFR (Cockcroft-Gault) 96.5 BUN/Creatinine Ratio 7 (6-20) Glucose Level 100 mg/dL (70-99) Calcium Level 8.6 mg/dL (8.5-10.1) Total Bilirubin 1.2 mg/dL (0.2-1.0) Aspartate Amino Transf (AST/SGOT) 17 U/L (15-37) Alanine Aminotransferase (ALT/SGPT) 14 U/L (16-63) Alkaline Phosphatase 98 U/L (46-116) Troponin I Quantitative 0.046 ng/mL (0.000-0.055) Total Protein 6.9 g/dL (6.4-8.2) Albumin 3.2 g/dL (3.4-5.0) Albumin/Globulin Ratio 0.9 (1.0-1.7) Brief Hospital Course Mr. Chan is a 48 old [sex] who presented with [ ] 48 AA male, takes 3 meds at home but cant recall their names, (including a water pill), SOA few days, some leg swelling, MIld congestion on CXR got 20 IVP lasix from er with good UO< no CP,. BP high side, got a call this AM from RN. Still soa, legs better HE mentions a water pill, maybe clonidine and another unrecalled med Trop second set mildly elevated 0. COURSE: echo normal, feels better s.p diuresis with 20 lasix IV x 2 doses - home today with PO lasix and KCL and rpt BMP in 2 weeks SOme ru on clonidine, dcd that BP on high side jazmin on admission, pls refer to <MAR Dw RN pT seen and examined Discharge Information Condition at Discharge: Improved, Stable Disposition/Orders: D/C to Home Scheduled Amlodipine Besylate (Amlodipine Besylate) 10 Mg Tablet, 10 MG PO DAILY for htn, #90 Prescribed by: RENETTA REDDING on 07/24/19 1256 Fluticasone Propionate (Flonase Allergy Relief) 9.9 Ml Fate.susp, 2 SPRAYS NS DAILY for alergies, #1 Prescribed by: RENETTA REDDING on 07/24/19 1256 Furosemide (Lasix) 20 Mg Tablet, 1 TAB PO DAILY for chf, #30 Ref 5 Prescribed by: RENETTA REDDING on 07/24/19 1256 Lisinopril (Lisinopril) 40 Mg Tablet, 1 TAB PO DAILY for htn, #90 Ref 1 Prescribed by: RENETTA REDDING on 07/24/19 1256 Potassium Chloride (Klor-Con 10) 10 Meq Tablet.er, 10 MEQ PO DAILY for on lasix for 14 Days, #14 Prescribed by: RENETTA REDDING on 07/24/19 1256 RENETTA REDDING MD Jul 24, 2019 12:59
--- NOTE | 2019-07-24 13:35 | NUR ---
Discharge Note: DUSTY CONTEH Discharge instructions and discharge home medications reviewed with Patient and a copy given. All questions have been answered and understanding verbalized. The following instructions and handouts were given: d/c and f/u instructions Discontinued lines and drains: Peripheral IV intact. Patient discharged to Home or Self Care with Family Member via Ambulated
== END 2019-07-24 13:46 | disposition home or self-care (01) | DRG 291 ==
LOC: ER 19:21 → 2 NORTH 23:54
PROVIDERS: ADMIT Internal Medicine; ATTEND Internal Medicine
DX: I11.0 Hypertensive heart disease with heart failure (principal); J96.00 Acute respiratory failure, unspecified whether with hypoxia or hypercapnia; I16.0 Hypertensive urgency; I50.33 Acute on chronic diastolic (congestive) heart failure; F17.200 Nicotine dependence, unspecified, uncomplicated; Z82.49 Family history of ischemic heart disease and other diseases of the circulatory system; Z79.899 Other long term (current) drug therapy; Z91.14 Patient's other noncompliance with medication regimen
CPT/HCPCS: 36415; 71046; 80053; 80061; 81001; 83880; 84484; 85025; 93005; 93306; 94640; J0360; J1940; J7613; J7620; G0378